=== PATIENT | female | born 1990 | race Caucasian/White ===

== ENCOUNTER 2017-02-16 16:48 | Emergency (ER) | payer MEDICAID, SELFPAY | END 2017-02-16 19:24 | disposition home or self-care (01) | PROVIDERS: Emergency Provider Emergency Medicine; Visit Provider Emergency Medicine | DX: O23.511 Infections of cervix in pregnancy, first trimester; O36.0191 Maternal care for anti-D [Rh] antibodies, unspecified trimester, fetus 1 | CPT/HCPCS: 76817; 80053; 81001; 84702; 85025; 86901; 87086; 87210; 87220; 96372; 99284 ==

== ENCOUNTER → 2017-03-06 14:04 | Outpatient (CLI) | payer MEDICAID, SELFPAY ==
[2017-03-06 14:39] LABS: Basophils % 0.2 % (0.1-2.0); Eosinophils # 0.1 K/mm3 (0.0-0.4); Eosinophils % 1.1 % (0.1-12.0); Lymphocytes % 24.9 K/mm3 (10-50); Mean Corpuscular HGB Conc 32.6 g/dL (31.8-35.4); Mean Corpuscular Hemoglobin 25.9 pg (27.0-31.2); Mean Corpuscular Volume 79.5 fl (81-99); Mean Platelet Volume 7.4 fl (7.4-10.4); Monocytes # 0.3 K/mm3 (0.1-1.0); Neutrophils # 5.7 K/mm3 (1.8-7.8); Neutrophils % 69.8 % (37.0-80.0); Platelet Count 271 K/mm3 (142-424); Red Blood Count 4.66 M/mm3 (4.20-5.40); Red Cell Distribution Width 16.1 % (11.5-17.5); White Blood Count 8.1 K/mm3 (4.8-10.8)
[2017-03-06 18:44] LABS: Free Thyroxine Index 4.5 ug/dL (5.93-13.13); T4 (Thyroxine) 17.2 ug/dl (4.7-13.3); Thyroid Stimulating Hormone 2.55 uIU/ml (0.358-3.740); Triiodothryronine (T3) Uptake 26 % (31-39)
[2017-03-07 06:59] LABS: Hepatitis B Surface Antigen Negative (Negative); Hepatitis C Antibody 0.1 s/co ratio (0.0-0.9)
[2017-03-08 12:14] LABS: Rapid Plasma Reagin Ab Titer Non Reactive (NonRea<1:1); Rubella Antibodies, IgG 3.34 index (Immune >0.99)
== END ==
PROVIDERS: PCP Nurse Practitioner Obstetrics & Gynecology; Visit Provider Nurse Practitioner Obstetrics & Gynecology
DX: Z34.90 Encounter for supervision of normal pregnancy, unspecified, unspecified trimester (principal)
CPT/HCPCS: 84436; 84443; 84479; 85025; 86592; 86762; 86850; 87340; 87380

== ENCOUNTER → 2017-04-30 13:02 | Outpatient (CLI) | payer MEDICAID, SELFPAY ==
--- NOTE | 2017-04-30 13:06 | US_ITS ---
US OB /maternal detail: INDICATION: ITS.REASON: US OB Complete ORDERING PHYSICIAN: Codey Cheng MD PATIENT AGE: 26 years TECHNIQUE: ultrasound transabdominal scanning. COMPARISON: No previous relevant studies. FINDINGS: Single viable intrauterine gestation. Cephalic position Currently. Placenta: Posterior with high anterior lateral wrap. No previa There is average amount fluid. The cervix appears satisfactory. Closed 4 cm in length. Complete survey performed and was unremarkable on the submitted images as in PACS. No discrete anomalies identified on survey imaging by technologist. Active fetus.Three-vessel cord with satisfactory umbilical cord insertion. Survey of brain & ventricles. In posterior fossa unremarkable Face and neck survey unremarkable. Nasion intact Diaphragm and chest views unremarkable. 4- chamber heart imaged. Cine loop included. LVOT imaged Abdomen: Both kidneys noted and unremarkable. Stomach noted and satisfactory. Spine: Survey of the spine satisfactory with no anomalies identified nor imaged. Both arms and legs noted. Appears to be a male fetus Amniotic Fluid: Adequate. Maternal adnexa: No prominent incidental findings encountered. Measurements: Average ultrasound age 20 week 2 day. Gestational Age 21 week 1 day. Estimated due date by ultrasound age 709/15/2017. Estimated weight 3 53-g +/- 52 grams. BPD = 19 week 6 day OFD = 20 week 6 day HC = 19 week 5 day AC = 20 week 3 day FL = 20 week 6 day Heart Rate = 140 BPM Cerebellum = 21 week 3 day Humerus = 20 week 6 day HC/AC = 1.12.(1.09-1.26.) CI = 73% % (70-86%).(70-86%). FL/BPD is 75%. FL/AC is 23%. WNL IMPRESSION: 20 week 2 day average ultrasound age Active fetus. Cephalic position Posterior placenta which wraps lateral and anterior . Anatomical survey of unremarkable & WNL .
== END ==
PROVIDERS: PCP Nurse Practitioner Obstetrics & Gynecology; Visit Provider Nurse Practitioner Obstetrics & Gynecology
DX: Z36.0 Encounter for antenatal screening for chromosomal anomalies (principal)
CPT/HCPCS: 76811

== ENCOUNTER → 2017-07-30 10:18 | Outpatient (CLI) | payer SELFPAY ==
[2017-07-30 10:45] LABS: Glucose,Fasting 103 mg/dL (60-105)
[2017-07-30 12:03] LABS: Glucose 1 Hour 195 mg/dL (74-106)
[2017-07-30 13:18] LABS: Glucose 2 Hour 181 mg/dL (74-106)
[2017-07-30 15:01] LABS: Glucose 3 Hour 128 mg/dL (74-106)
== END ==
PROVIDERS: PCP Nurse Practitioner Obstetrics & Gynecology; Visit Provider Obstetrics & Gynecology
DX: Z34.90 Encounter for supervision of normal pregnancy, unspecified, unspecified trimester (principal)
CPT/HCPCS: 36415; 82951

== ENCOUNTER → 2017-08-29 19:12 | Outpatient (REF) | payer MEDICAID, SELFPAY | LOC: LAB 19:12 | PROVIDERS: Visit Provider Nurse Practitioner Obstetrics & Gynecology | DX: Z34.90 Encounter for supervision of normal pregnancy, unspecified, unspecified trimester (principal) | CPT/HCPCS: 86403 ==

== ENCOUNTER 2017-09-05 19:09 | Outpatient (CLI) | payer MEDICAID, SELFPAY ==
[2017-09-05 19:19] VITALS: BMI 33.5
[2017-09-05 19:41] LABS: Microscopic, Urine URINE MICROSCOPIC (MICROSCOPIC)
[2017-09-05 19:44] LABS: Appearance,Urine CLEAR (Clear); Bilirubin,Urine Negative (Negative); Blood, Urine Negative (Negative); Color,Urine YELLOW (Yellow); Glucose,Urine (UA) Negative (Negative); Ketones,Urine 2+ (Negative); Leukocyte Esterase,Urine TRACE (Negative); Nitrate,Urine Negative (Negative); Protein,Urine Negative (Negative)
[2017-09-05 19:52] LABS: Fetal Membrane Rupture (Rapid) Negative (Negative)
[2017-09-05 19:55] LABS: Bacteria,Urine 1+ /lpf; Hyaline Casts,Urine Occasional #/lpf (0); Mucus,Urine 2+ /lpf
[2017-09-05 20:25] VITALS: BP 126/91; PULSE 98; RESP 18; TEMP 36.8; O2SAT 96; BMI 33.4
== END 2017-09-05 22:15 | disposition home or self-care (01) ==
LOC: OBOUT 19:11 → OB 19:11
PROVIDERS: Visit Provider Obstetrics & Gynecology
DX: O62.9 Abnormality of forces of labor, unspecified (principal); Z3A.38 38 weeks gestation of pregnancy
CPT/HCPCS: 59025; 81001; 84112; 96360; 96365; 96367; 96372; J0290

== ENCOUNTER 2017-09-10 13:51 | Inpatient (IN) ==
[2017-09-10 14:42] LABS: Basophils % 0.1 % (0.1-2.0); Eosinophils # 0.2 K/mm3 (0.0-0.4); Eosinophils % 1.8 % (0.1-12.0); Hematocrit 30.8 % (37.0-47.0); Hemoglobin 9.8 g/dL (12.2-16.2); Lymphocytes # 1.8 K/mm3 (0.7-4.5); Lymphocytes % 16.2 K/mm3 (10-50); Mean Corpuscular HGB Conc 31.8 g/dL (31.8-35.4); Mean Corpuscular Hemoglobin 23.2 pg (27.0-31.2); Mean Corpuscular Volume 72.8 fl (81-99); Mean Platelet Volume 7.5 fl (7.4-10.4); Monocytes # 0.4 K/mm3 (0.1-1.0); Monocytes % 3.8 % (1.7-9.3); Neutrophils # 8.7 K/mm3 (1.8-7.8); Neutrophils % 78.1 % (37.0-80.0); Platelet Count 257 K/mm3 (142-424); Red Blood Count 4.23 M/mm3 (4.20-5.40); Red Cell Distribution Width 16.7 % (11.5-17.5); White Blood Count 11.2 K/mm3 (4.8-10.8)
--- NOTE | 2017-09-10 16:26 | History & Physical Report ---
OB - H&P: HPI Antepartum - History of Present Illness Chief complaint: Ruptured membranes and contractions History of present illness: She is a 26-year-old 4 para 3 at 38+6 weeks gestational age. She thought that she was leaking from her membranes. She was having regular contractions. She was found to be 5 cm dilated. She was scheduled for a section and tubal ligation tomorrow. - History of Present Criteria for establishing EDC:: LMP confirmed by 1st trimester US care: good care Ultrasounds: normal 1st trimester US, normal mid trimester US Obstetrical complications: none Medical complications: none [facility] History I have reviewed the patient's past medical history: Yes Medical History: Denies:: Hyperlipidemia, Hypertension, MRSA, Seizures Other Medical History: Denies: Arthritis Other Surgeries: Yes: Amputation: No Fractures: No - *Social History Smoking Status: Current every day smoker Tobacco Type: cigarettes # Packs/Day (cigarettes): 1 #Yrs smoked (if former smoker): 10 Alcohol Intake: never Substance Use Type: denies use *Family Hx:: Hypertension Para: 3 Review of Systems - Review of Systems Review of systems:: pertinent systems reviewed and negative unless documented below Meds Home Medications Medication Instructions Recorded Confirmed Type Ferrous Sulfate 325 mg PO DAILY 09/10/17 09/10/17 History Vit Calc,Iron,Folic [Kpn] 1 tab PO QHS 09/10/17 09/10/17 History Allergies Allergy/AdvReac Type Severity Reaction Status Date / Time No Known Allergies Allergy Verified 09/05/17 13:42 OB - H&P: Exam - Physical Exam Vital signs: Temp Pulse Resp BP Pulse Ox 98.6 F 108 H 18 144/86 96 09/10/17 14:04 09/10/17 14:04 09/10/17 14:04 09/10/17 14:04 09/10/17 14:04 - Constitutional no acute distress - Routine HEENT Exam Head: Present: normocephalic - Routine Respiratory Exam Comments: She is breathing normal and no respiratory distress - Routine Abdominal Exam Present: soft Comments: Gravid - Routine Exam Comments: Her cervix is found to be 5 cm dilated. OB - Results - Labs Labs: Short CBC 09/10/17 Range/Units 14:30 WBC 11.2 H (4.8-10.8) K/mm3 Hgb 9.8 L (12.2-16.2) g/dL Hct 30.8 L (37.0-47.0) % Plt Count 257 (142-424) K/mm3 OB - A/P Antepartum (1) tubal ligation planned Current visit: Yes Status: Acute (2) Admission for tubal ligation Current visit: Yes Status: Acute (3) Previous section Problem details: Repeat CS 09/12/17 Current visit: No Status: Chronic - Additional Plan Planning to breastfeed?: Yes Plan: other Additional Information:: She has active labor that has now settled but she is 5 cm dilated. She was planning a section and bilateral salpingectomy in the morning. We will go ahead with a section and bilateral salpingectomy this evening. The risks and benefits were discussed with the patient when she signed her consents a couple of weeks ago.
--- NOTE | 2017-09-10 17:55 | Operative Note ---
Date of procedure: 09/10/17 Pre-op Diagnosis:: Term , previous section, active labor, desire for sterilization Post-op Diagnosis:: Term , section, active labor, desire for sterilization Procedure performed:: Repeat lower segment transverse section and bilateral tubal ligation Surgeon:: Codey Cheng MD MANAGER OF IT:: Demetrius Hernandez Anesthesia: spinal Estimated blood loss (mL): 600 Clinical Note:: She is a 26-year-old 4 para 3 who was 38 and 6 weeks gestational age. She was due to have a repeat section the next morning. She began having contractions in the afternoon of 10 September 2017 and was found to be 5 cm dilated. As result of that she was taken for a primary lower segment transverse section. She also expressed desire for sterilization. Operative findings:: She delivered a section liveborn male child at 5:15 PM in the afternoon of September 14, 2017. The baby had Apgars of 9 at 1 and 9 at 5 minutes. There was thin meconium at the time of delivery. Ovaries and tubes appeared normal. Operative note:: She was taken to the operating room where spinal anesthesia was found be adequate. She was prepped and draped in normal sterile fashion in the supine position with a leftward tilt. A Alford catheter was in the bladder. A Pfannenstiel skin incision was made with knife then carried through to the underlying layer of fascia with cautery. The fascia was opened in the midline with cautery and extended laterally using Rubio scissors. Riverside clamps were applied to the superior aspect of the fascial incision which was tented up and the underlying rectus muscles dissected off using cautery. The Rivers[place] clamps were then applied to the inferior aspect of the fascial incision which in a similar fashion was tented up and the underlying rectus muscles dissected off using cautery. The rectus muscles were then in the midline, the peritoneum identified, and entered sharply with Metzenbaum scissors. This incision was then extended superiorly and inferiorly with cautery. We had good visualization of the bladder inferiorly. The bladder peritoneum was then opened in the midline and extended laterally using Metzenbaum scissors. A bladder flap was created digitally. The lower blade of the [place] was inserted so as to push the bladder out of the way. Transverse incision was made through the uterine muscle to the amnion. This incision was then extended laterally using fingers traction. The amnion was entered sharply with knife. There was thin meconium. The 's head was then delivered atraumatically. The oropharynx and nasopharynx were suctioned with a DeLee suction. This was followed by the anterior shoulder and the rest of the 's body atraumatically. The was then handed off to Dr. Leon who assigned Apgars of 9 at 1 minute and 9 at 5 minutes. We then obtained cord blood as well as cord pH. Using gentle traction on the cord and countertraction on the fundus I was able to easily deliver the placenta intact. It had a normal three-vessel cord. The uterus was then cleared of clots and debris and exteriorized from the abdominal cavity. The uterine incision was then closed using running 0 Vicryl suture in a locked fashion. A second layer of the same suture was used to imbricate the first layer. The bladder peritoneum was then closed using running 2-0 Vicryl suture in a locked fashion. We then performed a tubal ligation by grasping a knuckle of tissue with a Marilyn and then clamping across this knuckle of tissue with a Ann clamp. This was then doubly suture ligated. The intervening section of tube was removed. The distal ends of the tubes were then cauterized. This was similar performed on the patient's left side. The gutters and cul-de-sac were then cleared of clots and debris and the uterus was returned the abdominal cavity. Once again hemostasis was assured. The peritoneum was grasped with Ann clamps and closed using running 2-0 Vicryl suture. The rectus muscles were then reapproximated using running 0 Vicryl suture. The fascia was closed using running #1 Vicryl suture. The subcutaneous tissues were then irrigated with warm water followed by closure Ra's fascia using running 2-0 Monocryl suture. The skin was closed with aravind. I then cleaned the skin with Hibiclens. Sterile dressings were applied. She tolerated the procedure well and was taken to the recovery room in excellent condition. All sponges minute and needle counts were correct. Estimate a blood loss was approximately 600 mL. Condition: stable Disposition: PACU Specimens:: Bilateral fallopian tube sections Complications:: None
--- NOTE | 2017-09-10 17:57 | Progress Note ---
[facility] Anesthesia Checklist - Patient Identification Patient Identification: Arm Band, Verbal (Name & ) - Structural Data Admitted From: Inpatient Planned Operative Procedure/s: c section, tubal Consent for Planned Operative Procedure(s) Verified: Yes Verified Documents: Surgical Consent - NPO Status Verified Time NPO: 13:00 - Additional verifications Patient : Yes Anesthesia Reactions: No Hx Blood Transfusions: No Blood Transfusion Reaction: No Cephalosporin Allergy: No Previous Colonoscopy: No - Cardiovascular Assessment Heart Sounds: S1 & S2 Pulse Strength: Baseline Peripheral Edema: No - Airway Assessment C-Spine Mobility Assessed: Yes TMJ Mobility Assessed: Yes Dentition: Good Dentition - Neurological Assessment Level of Consciousness: Awake, Alert, Appropriate Hx Seizures: No Numbness or tingling in extremities: No - Anesthesia Plan Anesthesia Risk discussed: Yes Anesthesia Plan: Verified ASA Class: II Anesthesia Type: Spinal [facility] Anesthesia HX I have reviewed the patient's past medical history: Yes Medical History: Denies:: Hyperlipidemia, Hypertension, MRSA, Seizures Other Medical History: Denies: Arthritis Other Surgeries: Yes: Cholecystectomy, Amputation: No Fractures: No *Family Hx:: Hypertension
--- NOTE | 2017-09-10 18:00 | Progress Note ---
[facility] Anesthesia Record Part I Intake, IV Amount: 1,650 Estimated blood loss (mL): 600 Urine output (mL): 800 Blood Products used (#): none Blood Pressure: 111/59 SaO2: 97 Pulse Rate: 71 Respiratory Rate: 20 Temperature: 98.0 F Patient is:: Awake, Stable Stable to PACU at:: 17:50
--- NOTE | 2017-09-10 18:02 | Progress Note ---
[facility] Anesthesia Record Part II Discharge Time: 18:20 Destination: Obstetric PACU nurse assessment reviewed?: Yes Patient Condition:: Good Anesthesia Complications:: None
[2017-09-11 07:02] LABS: Basophils % 0.1 % (0.1-2.0); Eosinophils % 0.3 % (0.1-12.0); Hematocrit 28.9 % (37.0-47.0); Hemoglobin 9.1 g/dL (12.2-16.2); Lymphocytes # 2.2 K/mm3 (0.7-4.5); Lymphocytes % 22.1 K/mm3 (10-50); Mean Corpuscular HGB Conc 31.5 g/dL (31.8-35.4); Mean Corpuscular Hemoglobin 23.2 pg (27.0-31.2); Mean Corpuscular Volume 73.7 fl (81-99); Mean Platelet Volume 6.9 fl (7.4-10.4); Monocytes # 0.5 K/mm3 (0.1-1.0); Monocytes % 5.2 % (1.7-9.3); Neutrophils # 7.3 K/mm3 (1.8-7.8); Neutrophils % 72.2 % (37.0-80.0); Platelet Count 214 K/mm3 (142-424); Red Blood Count 3.92 M/mm3 (4.20-5.40); Red Cell Distribution Width 16.8 % (11.5-17.5); White Blood Count 10.1 K/mm3 (4.8-10.8)
--- NOTE | 2017-09-11 08:48 | Progress Note ---
Internal Medicine - PN: Subj *Date: 09/11/17 *Time: 08:47 Interval history: She is doing well this morning after her and tubal ligation. She is eating and drinking and ambulate in. Her lochia is normal. Her pain is well controlled. Exam Vital signs and Labs for Last 24 Hours: Temp Pulse Resp BP Pulse Ox 98.4 F 74 18 138/60 96 09/10/17 18:20 09/10/17 18:20 09/10/17 18:20 09/10/17 18:20 09/10/17 18:20 Laboratory Results - last 24 hr 09/10/17 14:05: Membrane Rupture Positive A 09/10/17 14:30: WBC 11.2 H, RBC 4.23, Hgb 9.8 L, Hct 30.8 L, MCV 72.8 L, MCH 23.2 L, MCHC 31.8, RDW 16.7, Plt Count 257, MPV 7.5, Neut % (Auto) 78.1, Lymph % (Auto) 16.2, Hill % (Auto) 3.8, Eos % (Auto) 1.8, Baso % (Auto) 0.1, Neut # ( Auto) 8.7 H, Lymph # (Auto) 1.8, Hill # (Auto) 0.4, Eos # (Auto) 0.2, Baso # ( Auto) 0.0 09/10/17 14:30: Blood Type O Positive, Antibody Screen Negative 09/10/17 17:19: Cord ABG pH 7.37 09/11/17 06:15: WBC 10.1, RBC 3.92 L, Hgb 9.1 L, Hct 28.9 L, MCV 73.7 L, MCH 23.2 L, MCHC 31.5 L, RDW 16.8, Plt Count 214, MPV 6.9 L, Neut % (Auto) 72.2, Lymph % (Auto) 22.1, Hill % (Auto) 5.2, Eos % (Auto) 0.3, Baso % (Auto) 0.1, Neut # (Auto) 7.3, Lymph # (Auto) 2.2, Hill # (Auto) 0.5, Eos # (Auto) 0.0, Baso # (Auto) 0.0 I & O for Last 24 hours: Intake & Output 09/08/17 09/09/17 09/10/17 09/11/17 11:59 11:59 11:59 11:59 Intake Total 3525 / 3525 Output Total 800 / 800 Balance 2725 / 2725 Weight 209 lb - Constitutional no acute distress Assessment and Plan (1) tubal ligation planned Current visit: Yes Status: Acute Category: Medical (2) Admission for tubal ligation Current visit: Yes Status: Acute Category: Medical Code(s): Z30.2 - Encounter for sterilization (3) Previous section Problem details: Repeat CS 09/12/17 Current visit: No Status: Chronic Category: Surgical Code(s): Z98.891 - History of uterine scar from previous surgery - Assessment and plan all Dx Assessment and Plan for all problems:: She continues to do very well. We will plan to send her home in 48 hours.
--- NOTE | 2017-09-11 09:50 | Pharmacy Consult Notes ---
[facility] Pharmacy VTE Monitoring - Patient Demographics Admission date: 09/10/17 Report Date: 09/11/17 Time: 09:50 Allergies/Adverse Reactions: Patient Allergies No Known Allergies Allergy (Verified 09/05/17 13:42) Height: 1.68 m Weight: 94.801 kg Patient Problems: Current Active Problems tubal ligation planned (Acute) Admission for tubal ligation (Acute) - VTE Risk Labs: VTE Related Lab Results Hgb 9.1 g/dL (12.2-16.2) L 09/11/17 06:15 Hct 28.9 % (37.0-47.0) L 09/11/17 06:15 Plt Count 214 K/mm3 (142-424) 09/11/17 06:15 - Prophylaxis VTE Prophylaxis Ordered?: Yes Types of VTE Prophylaxis: IPCS Knee High Location of Applied Device: Bilateral Lower Extremeties - VTE Diagnosis Confirmed Treatment or plan recommended: Continue Current Treatment
--- NOTE | 2017-09-12 07:31 | Progress Note ---
Internal Medicine - PN: Subj *Date: 09/12/17 *Time: 07:30 Interval history: She continues to do well. She is eating and drinking and that her lochia is normal. Her pain is well controlled. Exam Vital signs and Labs for Last 24 Hours: Temp Pulse Resp BP Pulse Ox 98.4 F 74 18 138/60 96 09/10/17 18:20 09/10/17 18:20 09/11/17 13:36 09/10/17 18:20 09/10/17 18:20 Laboratory Results - last 24 hr 09/11/17 06:15: WBC 10.1, RBC 3.92 L, Hgb 9.1 L, Hct 28.9 L, MCV 73.7 L, MCH 23.2 L, MCHC 31.5 L, RDW 16.8, Plt Count 214, MPV 6.9 L, Neut % (Auto) 72.2, Lymph % (Auto) 22.1, [place] % (Auto) 5.2, Eos % (Auto) 0.3, Baso % (Auto) 0.1, Neut # (Auto) 7.3, Lymph # (Auto) 2.2, [place] # (Auto) 0.5, Eos # (Auto) 0.0, Baso # (Auto) 0.0 I & O for Last 24 hours: Intake & Output 09/09/17 09/10/17 09/11/17 09/12/17 11:59 11:59 11:59 11:59 Intake Total 3525 / 3525 Output Total 800 / 800 Balance 2725 / 2725 Weight 209 lb - Constitutional no acute distress Assessment and Plan (1) tubal ligation planned Current visit: Yes Status: Acute Category: Medical (2) Admission for tubal ligation Current visit: Yes Status: Acute Category: Medical Code(s): Z30.2 - Encounter for sterilization (3) Previous section Problem details: Repeat CS 09/12/17 Current visit: No Status: Chronic Category: Surgical Code(s): Z98.891 - History of uterine scar from previous surgery - Assessment and plan all Dx Assessment and Plan for all problems:: She continues to do very well we will plan to send her home tomorrow.
--- NOTE | 2017-09-13 08:19 | Discharge Summary ---
General - General Admission date:: 09/10/17 Discharge date: 09/13/17 HPI HPI: She is a 26-year-old 4 now para 4 who was 38 and 6 weeks gestational age. She was due to have a section the day after her admission but she came in in active labor. As result of that we booked her for a primary lower segment transverse section that day. Hospital Course Hospital Course: On September 10, 2017 she underwent a repeat lower segment transverse section and bilateral tubal ligation. She has done well and has remained afebrile throughout her hospitalization. She is eating and drinking and ambulate in. She is breast-feeding. She delivered a liveborn male child at 5:15 PM in the evening of September 10, 2017. The baby had Apgars of 9 at 1 minute and 9 at 5 minutes. She has O+ blood, she is rubella immune and was group A streptococcus negative. She is discharged home to follow-up with me in approximately 2 weeks time. She was given a prescription for Percocet 5/325, 30 tablets as well as Motrin 400 # 40 tablets. Her condition on discharge is stable. Objective Vital signs: Temp Pulse Resp BP Pulse Ox 97.5 F L 82 16 128/74 97 09/12/17 08:00 09/12/17 08:00 09/12/17 08:00 09/12/17 08:00 09/12/17 08:00 no acute distress DS: Diagnosis - Discharge Diagnosis (1) tubal ligation planned Status: Acute (2) Admission for tubal ligation Status: Acute (3) Previous section Status: Chronic Problem details: Repeat CS 09/12/17 Discharge Plan - Patient Discharge Instructions ACTIVITY: No heavy lifting DIET: continue same diet Patient Instructions: Post Discharge Instructions - Follow up Plan Disposition: Home, Self-Custodial Medications: Home Medications Medication Instructions Recorded Confirmed Type Ferrous Sulfate 325 mg PO DAILY 09/10/17 09/10/17 History Vit Calc,Iron,Folic [Kpn] 1 tab PO HS 09/10/17 09/11/17 History Prescriptions/Medication Reconciliation: New Oxycodone HCl/Acetaminophen [Percocet 5/325mg tablet] 1 - 2 tab PO Q4- 6H PRN #30 tab PRN Reason: Severe Pain Ibuprofen [Motrin 400mg tablet] 400 mg PO Q4HP PRN #40 tab PRN Reason: Moderate Pain Continue Vit Calc,Iron,Folic [Kpn] 1 tab PO HS Ferrous Sulfate 325 mg PO DAILY
== END 2017-09-13 10:50 | disposition home or self-care (01) ==
LOC: OBOUT 13:51 → OB 13:53
PROVIDERS: ADMIT Nurse Practitioner Obstetrics & Gynecology; ATTEND Nurse Practitioner Obstetrics & Gynecology

== ENCOUNTER 2019-09-21 18:38 | Emergency (ER) | payer OTHER, SELFPAY ==
[2019-09-21 18:47] VITALS: BP 137/102; PULSE 111; RESP 20; TEMP 36.7; O2SAT 99; BMI 32.5
[2019-09-21 18:52] VITALS: BP 155/96; PULSE 115; RESP 18; TEMP 37.1; O2SAT 99; BMI 32.5
--- NOTE | 2019-09-21 19:14 | XR_ITS ---
PROCEDURE: XR FOREARM RT 2V Patient Age:28Y CLINICAL INDICATION: glass laceration distal aspect forearm COMPARISON: No exams were available for comparison FINDINGS: Right forearm, AP and lateral view Osseous structures intact-no fracture or dislocation. No lytic or blastic change. There is normal mineralization. Limited views of elbow and wrist are unremarkable. There is a laceration with soft tissue irregularity and distortion at the ulnar aspect of distal forearm. No radiopaque foreign body here IMPRESSION: Osseous structures intact/no acute osseous findings A prominent laceration and soft tissue defect at the ulnar aspect distal forearm. No radiopaque foreign body seen here Dictated by: Alexandro Deluna MD 09/21/2019 22:12 Electronically signed by Alexandro Deluna MD in [place] 09/21/2019 22:12
--- NOTE | 2019-09-21 19:27 | HMH.EDGENADL ---
ED Disposition Clinical Impression: Laceration of forearm, right Qualifiers: Encounter type: initial encounter Qualified Code(s): S51.811A - Laceration without foreign body of right forearm, initial encounter Disposition: Home, Self-Care Condition on Discharge: Good Instructions: DI for Laceration Repair Additional Instructions: You have been evaluated for a laceration to your right forearm. Please keep the area covered. Keep it clean and dry. You may shower as soon as tomorrow. Do not soak, or swim. Follow-up with your primary care doctor in 5 to 7 days for suture removal. Return to the emergency department if you have any new or worsening symptoms, pain, redness, swelling, wound drainage. Referrals: PCP,No [Primary Care Provider] - Time of Disposition: 20:13 - Critical Care Critical Care Time: No Attestation: On 09/21/19, the high probability of a clinically significant, sudden or life threatening deterioration of the following system(s) required my full and direct attention, intervention and personal management. The time I documented below is in addition to time spent performing reported procedures but includes the following listed in this critical care notation. Medical Decision Making - Medical Records Medical records reviewed: Yes: I reviewed the patient's medical records. - Mikal Inquiry Pt receiving controlled substance: No Vital Signs: 09/21/19 18:47 09/21/19 18:52 Temperature 98.0 F 98.7 F Temperature Source Oral Oral Pulse Rate [Left Radial] 115 H Pulse Rate [Right Brachial] 111 H Respiratory Rate 20 18 Blood Pressure [Left Arm] 155/96 H Blood Pressure [Right Arm] 137/102 H Blood Pressure Mean [Left Arm] 115 Blood Pressure Mean [Right Arm] 113 Blood Pressure Source [Left Arm] Automatic Cuff Blood Pressure Source [Right Arm] Automatic Cuff Blood Pressure Position [Left Arm] Sitting Blood Pressure Position [Right Arm] Sitting 02 Sat by Pulse Oximetry 99 99 Oxygen Delivery Method Room Air Room Air Orders (Tests/Meds): ED MEDICATIONS Discontinued Medications Generic Name Dose Route Start Last Admin Trade Name Freq PRN Reason Stop Dose Admin Lidocaine HCl 10 ml 09/21/19 19:37 Lidocaine 1% 10ml Mdv IJ 09/21/19 19:38 ONCE ONE Tetanus/Reduced Diphtheria/Acell Pertussis 0.5 ml 09/21/19 19:10 09/21/19 19:42 Adacel Tdap 0.5ml Syringe IM 09/21/19 19:11 0.5 ml .ONCE ONE Administration ORDERS Category Date Time Status XR forearm RT 2V Stat Exams 09/21/19 19:14 Taken Medical Decision Narrative: In summary this is a 28-year-old [id number] female presenting to the emergency department with a laceration to the ulnar aspect of her right forearm. Patient is overall well-appearing on arrival. Vital signs stable. She has a soft tissue injury, concern for retained foreign body. Will obtain plain film x-rays of the right forearm. Tetanus updated. Rays show no radiopaque foreign bodies. Laceration copiously irrigated. Anesthetized with 2% lidocaine. Laceration repaired with nonabsorbable suture. Procedure well-tolerated. Patient instructed that she should follow-up with her primary care doctor in 5 to 7 days for wound recheck and for suture removal. Instructed to keep the laceration covered and keep the area clean and dry. General Adult HPI - General Chief complaint: Wound/Laceration Stated complaint: AO cut R arm on door glass Time Seen by Provider: 09/21/19 18:45 Mode of Arrival: Ambulatory Limitations: No Limitations Description of Symptoms (Recalled from ER Triage Doc. by RN): Pt has a laceration to R forearm, pt reports she was banging on a glass door of her house trying to get her husbands attention when the glass shattered. - History of Present Illness HPI narrative: 28-year-old female presenting to the emergency department with a laceration to her right forearm. Patient is right-handed. She was trying to knock on a glass w
[2019-09-21 20:30] VITALS: BP 127/80; PULSE 70; RESP 16; TEMP 36.6
== END 2019-09-21 20:40 | disposition home or self-care (01) ==
LOC: UTC 18:47 → ER 18:52
PROVIDERS: Emergency Provider Emergency Medicine
DX: S51.811A Laceration without foreign body of right forearm, initial encounter (principal); W25.XXXA Contact with sharp glass, initial encounter; Y92.019 Unspecified place in single-family (private) house as the place of occurrence of the external cause; F17.210 Nicotine dependence, cigarettes, uncomplicated; Z90.49 Acquired absence of other specified parts of digestive tract
CPT/HCPCS: 12002; 73090; 90471; 90715; 99282

== ENCOUNTER 2022-07-04 00:40 | Emergency (ER) | payer OTHER, SELFPAY ==
[2022-07-04 00:42] VITALS: BP 157/84; PULSE 126; RESP 16; TEMP 36.9; O2SAT 96; BMI 37.1
--- NOTE | 2022-07-04 00:48 | ECG_ITS ---
APPROVED REPORT Exam: Resting ECG HR:120 bpm ECG Measurements Heart Rate 120 AXES NM 150 P 67 QRSd 110 QRS 48 QT 339 T 46 QTc 411 Conclusion SINUS TACHYCARDIA NONSPECIFIC ST & T-WAVE ABNORMALITY ABNORMAL RHYTHM ECG UNCONFIRMED REPORT Electronically signed by : Demetrius Vitale MD 07/04/2022 20:10:39
[2022-07-04 00:59] LABS: Basophils # 0.1 K/mm3 (0-0.2); Basophils % 0.7 % (0.1-2.0); Eosinophils # 0.2 K/mm3 (0.0-0.4); Eosinophils % 2.2 % (0.1-12.0); Hemoglobin 11.6 g/dL (12.2-16.2); Lymphocytes # 3.6 K/mm3 (0.7-4.5); Lymphocytes % 38.8 % (10-50); Mean Corpuscular HGB Conc 32.2 g/dL (31.8-35.4); Mean Corpuscular Hemoglobin 24.8 pg (27.0-31.2); Mean Platelet Volume 7.6 fl (7.4-10.4); Monocytes # 0.5 K/mm3 (0.1-1.0); Monocytes % 4.8 % (1.7-9.3); Neutrophils % 53.5 % (37.0-80.0); Platelet Count 427 K/mm3 (142-424); Red Blood Count 4.68 M/mm3 (4.20-5.40); Red Cell Distribution Width 17.1 % (11.5-17.5); White Blood Count 9.3 K/mm3 (4.8-10.8)
[2022-07-04 01:04] LABS: Chloride 95 mmol/L (98-107); Sodium 136 mmol/L (136-145)
[2022-07-04 01:06] LABS: Alanine Aminotransferase 59 U/L (12-78); Aspartate Amino Transferase 50 U/L (14-36); Blood Urea Nitrogen 8 mg/dl (7-17); Creatinine Clearance Estimated 171 mL/min (50-200); Estimated Glomerular Filt Rate 85 ml/min (>60); GFR (African American) 103 ML/MIN (>60)
--- NOTE | 2022-07-04 01:06 | XR_ITS ---
PROCEDURE INFORMATION: Exam: XR Chest Exam date and time: 07/04/2022 1:04 AM Age: 31 years old Clinical indication: Shortness of breath; Additional info: SOA TECHNIQUE: Imaging protocol: Radiologic exam of the chest. Views: 2 views. COMPARISON: CR XR CHEST 2V 01/30/2019 5:26 AM FINDINGS: Lungs: No acute findings or consolidation. Pleural spaces: No pleural effusion. No pneumothorax. Heart/Mediastinum: No acute findings or cardiomegaly. Bones/joints: No acute findings. IMPRESSION: No acute cardiopulmonary findings.
[2022-07-04 01:07] LABS: Albumin Level 4.1 g/dl (3.5-5.0); Albumin/Globulin Ratio 1.1 (1.1-1.8); Alkaline Phosphatase 98 U/L (38-126); Anion Gap 17.9 mEq/L (5-15); Bilirubin,Total 0.2 mg/dl (0.2-1.3); Calcium 9.2 mg/dl (8.4-10.2); Carbon Dioxide 26 mmol/L (22.0-30.0); Globulin 3.6 g/dL (1.3-3.2); Glucose 162 mg/dl (74-100); Total Protein,Serum 7.7 g/dl (6.3-8.2)
--- NOTE | 2022-07-04 01:11 | PC.NURSE ---
patient gone to RAD at this time.
--- NOTE | 2022-07-04 01:17 | PC.NURSE ---
patient back in room at this time
[2022-07-04 01:23] LABS: Potassium 2.9 mmoL/L (3.5-5.1)
[2022-07-04 01:27] LABS: Procalcitonin 0.079 ng/mL (0.0-2.0)
[2022-07-04 01:40] LABS: Troponin I < 0.01 ng/ml (0.00-0.034)
--- NOTE | 2022-07-04 01:40 | [facility].EDDIZZ ---
Discharge Plan Disposition Patient Disposition: Home, Self-Care Prescriptions Prescriptions: New prednisone [prednisone] 20 mg tablet 20 mg PO BID Qty: 10 0RF Referrals Follow up/Referrals: Provider,Referral, MD [Primary Care Provider] - See instructions Clinical Impressions Clinical Impression: Acute dyspnea Instructions Patient Instructions: Dizziness, Nonvertigo Discharge ED Provider: Mitchell (ED),Frandy Perez HPI General Chief Complaint: Dizziness Stated Complaint: Dizzy, light headed, mouth numbness Time Seen by Provider: 07/04/22 01:40 Mode of Arrival: Ambulatory Source of Information: Patient, Significant Other and Medical Record Limitations: No Limitations Description of Symptoms (Recalled from ER Triage Doc. by RN): Pt arrives to ED with c/o dizziness and SOB x 3 days. Pt also stated she has had headaches and left sided neck pain for the last 2-3 days on and off. History of Present Illness HPI Narrative: over the last few days has feeling of sob and dizzyness and has no trauma fever - recent viral illness but has headache complaint: dizziness Onset (ago): day(s) Timing: gradual onset History of similar episodes: No History of trauma: No Severity: moderate Associated symptoms: denies other symptoms Related Data Previous Rx's Medication Instructions Recorded prednisone 20 mg tablet 20 mg PO BID #10 tabs 07/04/22 Allergies Allergy/AdvReac Type Severity Reaction Status Date / Time nut - unspecified Allergy Verified 09/21/19 18:59 [facility] Disclaimer: The information contained in this section may have been updated after the patient was seen, as this information can be updated by other users. Social History Smoking Status: Current every day smoker tobacco type: cigarettes packs per day: 1 alcohol intake: never substance use type: denies use current occupational status: other Travel in the last 8 weeks: None household members: children housing: house ROS Obtained: Yes All systems reviewed & no additional complaints except as documented Physical Exam General General appearance: alert Head Head exam: normocephalic Eye Eye exam: Present PERRL and EOMI; Absent scleral icterus ENT ENT exam: Present mucous membranes moist Neck Neck exam: Present trachea midline Respiratory Respiratory exam: Present normal lung sounds bilaterally; Absent respiratory distress Cardiovascular Cardiovascular exam: Present regular rate; Absent systolic murmur, rubs or gallop Abdominal Exam Abdominal exam: Present soft Extremities Exam Extremities exam: Present full ROM; Absent calf tenderness Neurological Exam Neurological exam: Present alert, oriented X3 and CN II-XII intact; Absent motor sensory deficit Psychiatric Psychiatric exam: Present normal affect Skin Skin exam: Absent rash Medical Decision Making Medical Records Medical records reviewed: Yes I reviewed the patient's medical records. Mikal Inquiry Pt receiving controlled substance: No Vital Signs: 07/04/22 00:42 07/04/22 02:00 07/04/22 03:00 Temperature 98.5 F Temperature Source Oral Pulse Rate 95 H 96 H Pulse Rate [Right] 126 H Respiratory Rate 16 18 17 Blood Pressure 126/84 Blood Pressure [Right Arm] 157/84 H Blood Pressure Mean Blood Pressure Mean [Right Arm] 108 02 Sat by Pulse Oximetry 96 100 95 Oxygen Delivery Method Room Air 07/04/22 03:30 07/04/22 04:00 Temperature Temperature Source Pulse Rate 88 90 Pulse Rate [Right] Respiratory Rate 18 20 Blood Pressure 125/88 127/92 H Blood Pressure [Right Arm] Blood Pressure Mean 99 104 Blood Pressure Mean [Right Arm] 02 Sat by Pulse Oximetry 97 96 Oxygen Delivery Method Lab Data Lab results reviewed: Yes I reviewed the patient's lab results. Lab Results 07/04/22 00:52: WBC 9.3, RBC 4.68, Hgb 11.6 L, Hct 36.0 L, MCV 77.0 L, MCH 24.8 L, MCHC 32.2, RDW 17.1, Plt Count 427 H, MPV 7.6, Neut % (Auto) 53.5, Lym
[2022-07-04 01:47] LABS: T4 (Thyroxine) 14.7 ug/dl (5.53-11.0)
[2022-07-04 01:53] LABS: C-Reactive Protein 52.1 mg/L (0-4)
[2022-07-04 01:56] LABS: Erythrocyte Sedimentation Rate 70 mm/hr (0-20)
--- NOTE | 2022-07-04 01:57 | CT_ITS ---
PROCEDURE INFORMATION: Exam: CTA Chest With Contrast Exam date and time: 07/04/2022 2:52 AM Age: 31 years old Clinical indication: Shortness of breath; Additional info: SOA TECHNIQUE: Imaging protocol: Computed tomographic angiography of the chest with contrast. 3D rendering (Not supervised by radiologist): MIP and/or 3D reconstructed images were created by the technologist. Radiation optimization: All CT scans at this facility use at least one of these dose optimization techniques: automated exposure control; mA and/or kV adjustment per patient size (includes targeted exams where dose is matched to clinical indication); or iterative reconstruction. Contrast material: ISOVUE; Contrast volume: 70 ml; Contrast route: INTRAVENOUS (IV); REPORTING DATA: Count of CT and Cardiac NM exams in prior 12 months: This patient has received 0 known CTs and 0 known cardiac nuclear medicine studies in the 12 months prior to the current study. COMPARISON: CR XR CHEST 2V 07/04/2022 1:04 AM FINDINGS: Pulmonary arteries: No pulmonary emboli. Great vessels off aortic arch: Retroesophageal right subclavian artery. Aorta: No aortic aneurysm. No aortic dissection. Lungs: No consolidation or infiltrate. No masses. Pleural spaces: No pneumothorax. No pleural effusion. Heart: No cardiomegaly. No pericardial effusion. Lymph nodes: No pathologically enlarged lymph nodes. Bones/joints: No acute fracture. Soft tissues: No acute findings. IMPRESSION: 1. No acute findings in the chest. 2. Retroesophageal right subclavian artery.
[2022-07-04 02:00] VITALS: PULSE 95; RESP 18; O2SAT 100
[2022-07-04 02:01] LABS: Thyroid Stimulating Hormone 2.79 uIU/mL (0.465-4.68)
--- NOTE | 2022-07-04 02:48 | PC.NURSE ---
patient gone to RAD at this time.
[2022-07-04 03:00] VITALS: BP 126/84; PULSE 96; RESP 17; O2SAT 95
[2022-07-04 03:30] VITALS: BP 125/88; PULSE 88; RESP 18; O2SAT 97
[2022-07-04 04:00] VITALS: BP 127/92; PULSE 90; RESP 20; O2SAT 96
[2022-07-04 04:38] LABS: Troponin I < 0.01 ng/ml (0.00-0.034)
[2022-07-04 04:43] VITALS: BP 124/73; PULSE 87; RESP 16; TEMP 36.9; O2SAT 97
== END 2022-07-04 04:56 | disposition home or self-care (01) ==
PROVIDERS: Emergency Provider Emergency Medicine
DX: R42 Dizziness and giddiness (principal); R06.02 Shortness of breath; F17.210 Nicotine dependence, cigarettes, uncomplicated
CPT/HCPCS: 71046; 71275; 80053; 84145; 84436; 84443; 84484; 85025; 85651; 86140; 93005; 96361; 96374; 99285; Q9967